=== PATIENT | female | born 1960 | race Caucasian/White ===

== ENCOUNTER → 2020-01-27 16:50 | Outpatient (CLI) | payer BC, SELFPAY ==
--- NOTE | ~2020-01-27 | MR_ITS ---
EXAMINATION: MR hip LT wo con DATE: 01/27/2020 17:52 INDICATION: Left hip pain and locking TECHNIQUE: Magnetic resonance imaging (MRI) of the left hip was performed without intravenous contra st. Sequences included full-field axial PD-weighted FS FSE and T1-weighted FSE, coronal of the pelvis with PD-weighted FS FSE, small field of view of the left hip with axial PD-weighted FS FSE, sagitta l PD-weighted FS FSE and coronal PD weighted FS FSE. Additional radial T1-weighted FGR oriented ortho gonal to the acetabular rim were obtained for evaluation of the labrum. COMPARISON: None FINDINGS: Bones/labrum/cartilage: Alignment is normal. No fracture, avascular necrosis or pathologic marrow replacing process. Severe osteoarthritis at the left hip with nonuniform joint space narrowing, greatest anterosuperiorly where there appears to be full/near full-thickness cartilage loss along both the anterosuperior femoral he ad where there is underlying subarticular edema and at the anterosuperior acetabulum where there is p rominent subarticular cystic changes. Moderate size marginal osteophytes along the left femoral head. Diffuse amorphous increased signal consistent with degenerative tearing at the posterior superior an d anterior to anterosuperior left acetabular labrum. Additional prominent increased intrasubstance si gnal which does not definitively contact the articular surface at the intervening superolateral aceta bular labrum likely related to intrasubstance degeneration without discrete tear. Suggestive but not diagnostically evaluated on the larger a few images is less severe osteoarthritis at the right hip bu t with similar pattern of prominent subarticular cystic change at the anterosuperior right acetabulum . Severe disc height loss with degenerative endplate changes at L5-S1. Mild to moderate left-sided pr edominant disc height loss at L4-L5. Moderate to severe lower lumbar facet osteoarthritis. Fluid: Small left hip joint effusion. Physiologic amount of fluid at the right hip. No bursitis or other abn ormal fluid collections. Soft tissues: Normal and symmetric muscle bulk and signal in the pelvis and visualized proximal thighs. Mild tendin opathy without discrete tear at the left greater trochanteric insertion of the left gluteus medius mi nimus and medius tendons. The right-sided gluteal tendons as well as the bilateral iliopsoas and prox imal hamstring tendons are normal. 1.5 cm subtly decreased T2 signal intensity fibroid at the right s yolis of the uterine fundus. Limited evaluation of visceral organs of the pelvis is unremarkable includ ing a normal appendix. No pathologically enlarged pelvic/inguinal lymphadenopathy. IMPRESSION: 1. Severe left hip osteoarthritis with labral degeneration. 2. Less severe osteoarthritis at the right hip but with high-grade chondromalacia with relatively sym metric prominent subarticular cystic change at the anterosuperior right acetabulum. 3. Mild tendinopathy without discrete tear at the distal left gluteus medius and minimus tendons. 4. Uterine fibroid. Reviewed, dictated and finalized at location A. ER OPERATOR IMPRESSION: 1. Severe left hip osteoarthritis with labral degeneration. 2. Less severe osteoarthritis at the right hip but with high-grade chondromalac ia with relatively symmetric prominent subarticular cystic change at the cuco superior right acetabulum. 3. Mild tendinopathy without discrete tear at the distal left gluteus medius an d minimus tendons. 4. Uterine fibroid.
== END ==
PROVIDERS: Visit Provider Orthopaedic Surgery
DX: M16.0 Bilateral primary osteoarthritis of hip (principal); D25.9 Leiomyoma of uterus, unspecified
CPT/HCPCS: 73721

== ENCOUNTER → 2023-03-26 07:11 | Outpatient (CLI) | payer BC, SELFPAY ==
--- NOTE | ~2023-03-26 | MM_ITS ---
EXAMINATION: MM screening [facility] BI w argenis HISTORY: Screening mammogram TECHNIQUE: Craniocaudal and mediolateral oblique 3-D tomosynthesis images were obtained and synthetic 2-D images were generated. CAD analysis was submitted and interpreted. COMPARISON: 12/02/2019, 03/24/2011, 03/17/2011 BREAST PARENCHYMAL COMPOSITION: The breasts are heterogeneously dense, which may obscure small masses . FINDINGS: No suspicious mass, calcification, or architectural distortion are identified in either maribeth ast to suggest malignancy. There has been no suspicious interval change. IMPRESSION: 1. No mammographic evidence of malignancy. 2. Recommend routine screening mammography in one year. BI-RADS Category 1: Negative Reviewed, dictated and finalized at location A.
== END ==
PROVIDERS: PCP Family Medicine Adolescent Medicine; Visit Provider Family Medicine Adolescent Medicine
DX: Z12.31 Encounter for screening mammogram for malignant neoplasm of breast (principal); C50.919 Malignant neoplasm of unspecified site of unspecified female breast
CPT/HCPCS: 77063; 77067